=== PATIENT | male | born 1980 | race Caucasian/White ===

== ENCOUNTER 2017-12-26 21:03 | Observation (INO) | payer OTHER ==
[2017-12-26] MEDS ORDERED: CEFAZOLIN 1 GM VIAL ONE (21:53)
[2017-12-26] MEDS ORDERED: Adacel (T-DAP) 0.5 ML VIAL ONE (21:53)
--- NOTE | 2017-12-26 21:53 | RAD ---
TWO VIEWS LEFT FOREARM: 12/26/17 HISTORY: Trauma to left forearm. FINDINGS: There are transverse fractures involving the distal one third of both the left radial and ulnar diaph ysis. Fracture involving the ulna is mildly comminuted. The distal fracture fragments are displaced l aterally with the radial fracture fragment displaced by three-quarters of a shaft width and lateral d isplacement of the distal ulnar fracture fragment by greater than one full shaft width. There is also mild dorsal displacement of the distal radial fracture fragment. There is apex volar angulation of t he fracture of the ulna. There is adjacent subcutaneous soft tissue swelling noted. There is suggesti on of subcutaneous emphysema involving the dorsal and lateral forearm which may be related to associa karla laceration. No additional fracture or dislocation is seen. IMPRESSION: 1. Transverse fractures of the distal one third left radius and ulna with displacement and angul ation of fracture fragments. Fracture involving the ulna is mildly comminuted. 2. Subcutaneous soft tissue swelling with subcutaneous emphysema which could be related to lacer ation. POS: [facility]
[2017-12-26 22:33] LABS: #Basophils 0.1 thou/uL (0.0-0.2); #Eosinphils 0.1 thou/uL (0.0-0.7); #Lymphocytes 2.4 thou/uL (1.20-3.40); #Monocytes 0.7 thou/uL (0.11-0.59); #Neutrophils 9.4 thou/uL (1.40-6.50); %Basophils 0.4 % (0.0-1.0); %Eosinophils 0.6 % (0.0-10.0); %Lymphocytes 18.8 % (21.0-51.0); %Monocytes 5.3 % (0.0-10.0); %Neutrophils 74.9 % (42.0-75.0); Hemoglobin 16.3 g/dL (14.0-18.0); Mean Corpuscular HGB CONC 35.8 g/dL (32.0-36.0); Mean Corpuscular Hemoglobin 33.4 pg (27.0-31.0); Mean Corpuscular Volume 93.3 fL (78.0-98.0); Mean Platelet Volume 8.2 fL (7.4-10.4); Platelet Count 207 thou/uL (130-400); RBC Distribution Width 10.7 % (11.5-14.5); Red Blood Cell (RBC) Count 4.87 mill/uL (4.70-6.10); White Blood Cell (WBC) Count 12.6 thou/uL (4.8-10.8)
[2017-12-26] MEDS ORDERED: Oxazepam 10 MG CAP PO PRN (22:53)
[2017-12-26 23:24] LABS: ALT (SGPT) 280 U/L (8-55); AST (SGOT) 126 U/L (5-34); Albumin 4.3 g/dL (3.5-5.0); Alkaline Phosphatase 75 U/L (40-150); Anion Gap 15 mmol/L (10-20); BUN (Urea Nitrogen) 10 mg/dL (8.9-20.6); Bilirubin, Total 0.4 mg/dL (0.2-1.2); Calc. Creatinine Clearance 0 mL/min (70-130); Calcium 8.7 mg/dL (7.8-10.44); Carbon Dioxide 20 mmol/L (22-29); Chloride 106 mmol/L (98-107); Estimated GFR-MDRD Greater than 90; Globulin 2.5 g/dL (2.4-3.5); Glucose 115 mg/dL (70-105); Potassium 3.8 mmol/L (3.5-5.1); Protein, Total 6.8 g/dL (6.0-8.3); Sodium 137 mmol/L (136-145)
[2017-12-26] MEDS ORDERED: Acetaminophen 1,000 MG in Premix Bag 1 BAG IVPB SCH (23:35)
[2017-12-26] MEDS ORDERED: Bisacodyl 10 MG SUPP PR PRN (23:35)
[2017-12-26] MEDS ORDERED: Dextrose 5% in Water 1,000 ML IV PRN (23:35)
[2017-12-26] MEDS ORDERED: Ondansetron HCl/PF 4 MG/2 ML Vial IVP PRN (23:35)
[2017-12-26] MEDS ORDERED: Dextrose 50% Abboject 50 ML SYRINGE SLOW IVP PRN (23:35)
[2017-12-26] MEDS ORDERED: Polyethylene Glycol 3350 17 GM Packet PO PRN (23:35)
[2017-12-26] MEDS: Sodium Chloride 0.9% 1,000 ML IV SCH (23:44)
--- NOTE | 2017-12-26 23:51 | RAD ---
PORTABLE AP CHEST X-RAY 12/26/17 HISTORY: Preoperative evaluation. COMPARISON: None available. FINDINGS: The cardiac silhouette and pulmonary vasculature are within normal limits for the portable technique of the study. Lungs appear clear. Osseous structures are intact. IMPRESSION: No acute cardiopulmonary process. POS: [facility]
[2017-12-27 01:26] VITALS: BMI 27.1
[2017-12-27] MEDS ORDERED: Ketorolac Tromethamine 30 MG/ML VIAL IVP PRN (02:08)
[2017-12-27 06:00] LABS: #Basophils 0.1 thou/uL (0.0-0.2); #Lymphocytes 2.1 thou/uL (1.20-3.40); #Monocytes 0.9 thou/uL (0.11-0.59); #Neutrophils 8.7 thou/uL (1.40-6.50); %Basophils 0.7 % (0.0-1.0); %Eosinophils 0.4 % (0.0-10.0); %Monocytes 7.2 % (0.0-10.0); %Neutrophils 73.8 % (42.0-75.0); Hemoglobin 15.9 g/dL (14.0-18.0); Mean Corpuscular HGB CONC 35.4 g/dL (32.0-36.0); Mean Corpuscular Hemoglobin 33.3 pg (27.0-31.0); Mean Corpuscular Volume 94.2 fL (78.0-98.0); Platelet Count 202 thou/uL (130-400); RBC Distribution Width 10.8 % (11.5-14.5); Red Blood Cell (RBC) Count 4.78 mill/uL (4.70-6.10); White Blood Cell (WBC) Count 11.8 thou/uL (4.8-10.8)
[2017-12-27 06:25] LABS: Anion Gap 12 mmol/L (10-20); BUN (Urea Nitrogen) 10 mg/dL (8.9-20.6); Calc. Creatinine Clearance 190 mL/min (70-130); Carbon Dioxide 24 mmol/L (22-29); Chloride 107 mmol/L (98-107); Estimated GFR-MDRD Greater than 90; Glucose 102 mg/dL (70-105); Magnesium 2.1 mg/dL (1.6-2.6); Phosphorus 4.2 mg/dL (2.3-4.7); Potassium 4.1 mmol/L (3.5-5.1); Sodium 139 mmol/L (136-145)
[2017-12-27] MEDS ORDERED: CEFAZOLIN/Water 2 GM/20 ML SYRINGE SLOW IVP SCH (08:00)
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
[2017-12-27] MEDS ORDERED: Midazolam HCl 2 mg/2 ml Vial ONE ×2 (08:25→08:28)
[2017-12-27] MEDS ORDERED: Fentanyl 100 MCG/2 ML VIAL ONE ×2 (08:25→08:28)
[2017-12-27] MEDS ORDERED: Lidocaine 1% (PF) 30 ML VIAL ONE (08:27)
[2017-12-27] MEDS ORDERED: CEFAZOLIN/Water 2 GM/20 ML SYRINGE ONE (08:28)
[2017-12-27] MEDS ORDERED: Famotidine/PF 20 mg/2ml Vial SLOW IVP SCH (09:00)
[2017-12-27] MEDS: Sodium Chloride 0.9% 1,000 ML IV SCH (09:12)
[2017-12-27] MEDS ORDERED: HYDROcodone/Acetaminophen 10/325 mg Tablet PO PRN (10:13)
[2017-12-27] MEDS ORDERED: Promethazine HCl 25 MG/ML VIAL SLOW IVP PRN (10:31)
[2017-12-27] MEDS ORDERED: Ondansetron HCl/PF 4 MG/2 ML Vial IVP PRN (10:31)
[2017-12-27] MEDS ORDERED: Promethazine HCl 25 MG/ML VIAL IM PRN (10:31)
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
[2017-12-27 13:15] VITALS: BP 134/86; TEMP 97.8
--- NOTE | 2017-12-27 15:22 | RAD ---
TWO VIEWS OF THE LEFT FOREARM: Comparison: 12-26-17 History: Forearm fracture. FINDINGS/IMPRESSION: Two limited intraoperative fluoroscopic views of the left forearm were submitted for interpretation. The patient is status post plate and screw fixation of the fractures of the midportion of the radius and ulna. No perihardware lucency is seen. POS: [facility]
[2017-12-27] MEDS ORDERED: Bupivacaine HCl 0.5%/Epinephrine 1:200,000/PF 30 ml Vial ONE (19:31)
[2017-12-27] MEDS ORDERED: Ondansetron HCl/PF 4 MG/2 ML Vial ONE (20:48)
[2017-12-27] MEDS ORDERED: PROPOFOL 200 MG/20 ML VIAL ONE (20:48)
[2017-12-27] MEDS ORDERED: Lidocaine 1% PF 5 ML VIAL ONE (20:48)
== END 2017-12-27 14:15 | disposition home or self-care (01) ==
LOC: ERS 21:03 → SURG A 23:21
PROVIDERS: ADMIT Surgery; ATTEND Surgery
PROC: 0PSJ04Z Reposition Left Radius with Internal Fixation Device, Open Approach (ICD-10-PCS; principal; 2017-12-27)
PROC: 0PSL04Z Reposition Left Ulna with Internal Fixation Device, Open Approach (ICD-10-PCS; 2017-12-27)
PROC: 0PBK0ZZ Excision of Right Ulna, Open Approach (ICD-10-PCS; 2017-12-27)
DX: S52.322B Displaced transverse fracture of shaft of left radius, initial encounter for open fracture type I or II (principal); S52.222B Displaced transverse fracture of shaft of left ulna, initial encounter for open fracture type I or II; V86.55XA Driver of 3- or 4- wheeled all-terrain vehicle (ATV) injured in nontraffic accident, initial encounter
CPT/HCPCS: 29125; 36415; 71045; 76001; 80048; 80053; 83735; 84100; 85025; 90471; 90715; 93005; 96361; 96374; 96375; 96376; C1713; G0378; G0390; J0131; J0670; J0690; J1885; J2001; J2250; J2270; J2405; J2704; J3010